=== PATIENT | male | born 1980 ===

== ENCOUNTER 2021-11-15 22:35 | Emergency (ER) | payer OTHER, SELFPAY ==
[2021-11-15] MEDS ORDERED: LIDOCAINE 1% MPF 5 ML VIAL ONE (22:52)
--- NOTE | 2021-11-15 23:24 | ER ---
Nurse's Notes [facility] Name: Neil Jeffery Age: 41 yrs Sex: Male : 1980 Arrival Date: 11/15/2021 Time: 22:39 Bed 20 Private MD: Diagnosis: Laceration without foreign body of other finger without damage to nail-right fifth and right fourth fingers;Hypertensive heart disease without heart failure Presentation: 11/15 22:43 Chief complaint: Patient states: laceration to the right hand the 4th and 5th digit. sf1 Coronavirus screen: Vaccine status: Patient reports receiving the 2nd dose of the covid vaccine. Client denies travel out of the [place] in the last 14 days. Ebola Screen: Patient negative for fever greater than or equal to 101.5 degrees Fahrenheit, and additional compatible Ebola Virus Disease symptoms Patient denies exposure to infectious person. Patient denies travel to an Ebola-affected area in the 21 days before illness onset. Initial Sepsis Screen: Does the patient meet any 2 criteria? No. Patient's initial sepsis screen is negative. Does the patient have a suspected source of infection? No. Patient's initial sepsis screen is negative. Risk Assessment: Do you want to hurt yourself or someone else? Patient reports no desire to harm self or others. Onset of symptoms was November 15, 2021. 22:43 Method Of Arrival: Ambulatory sf1 22:43 Acuity: LAILA 4 sf1 Triage Assessment: 22:45 General: Appears in no apparent distress. Behavior is calm, cooperative, appropriate sf1 for age. Pain: Complains of pain in dorsal aspect of proximal phalanx of right ring finger and dorsal aspect of proximal phalanx of right little finger. Historical: - Allergies: 22:45 No Known Allergies; sf1 - Home Meds: 22:45 lisinopril 20 mg Oral tab 1 tab once daily [Active]; gabapentin 300 mg oral cap sf1 [Active]; sertraline 100 mg oral tab 1 tab once daily [Active]; - PMHx: 22:45 Hypertensive disorder; ptsd; sf1 - Immunization history:: Adult Immunizations up to date, Client reports receiving the 2nd dose of the Covid vaccine, Last tetanus immunization: up to date Flu vaccine is not up to date. - Social history:: Smoking status: Patient reports the use of cigarette tobacco products, smokes one-half pack cigarettes per day, Patient uses alcohol, on a daily basis. Patient/guardian denies using street drugs. Screenin:38 Abuse screen: Denies threats or abuse. Nutritional screening: No deficits noted. sf1 Tuberculosis screening: No symptoms or risk factors identified. Fall Risk None identified. Vital Signs: 23:40 BP 182 / 90; Pulse 80; Resp 20; Pulse Ox 98% ; sf1 ED Course: 22:39 Patient arrived in ED. mw2 22:39 Real Mai PA is PHCP. cp 22:39 Randy Lopez MD is Attending Physician. cp 22:43 Rachel Waite RN is Primary Nurse. sf1 22:44 Triage completed. sf1 23:38 Assist provider with laceration repair Set up tray. Dressed with Adaptic, Kerlix. sf1 Patient did not have IV access during this emergency room visit. 23:39 Patient has correct armband on for positive identification. sf1 Administered Medications: 23:24 Drug: Lidocaine (1 %) 10 ml Volume: 20 ml; Route: Infiltration; sf1 Outcome: 23:23 Discharge ordered by MD. cp 23:39 Discharged to home ambulatory. sf1 23:39 Condition: stable 23:39 Discharge instructions given to patient, Instructed on discharge instructions, follow up and referral plans. Demonstrated understanding of instructions, follow-up care, medications, Prescriptions given X 1. 23:41 Patient left the ED. sf1 Signatures: Real Mai PA PA cp [place], MyKena mw2 Rachel Waite RN RN sf1
--- NOTE | 2021-11-15 23:24 | EDPHYS ---
Physician Documentation [facility] Name: Neil Jeffery Age: 41 yrs Sex: Male : 1980 Arrival Date: 11/15/2021 Time: 22:39 Bed 20 Private MD: ED Physician Randy Lopez HPI: 11/15 23:00 This 41 yrs old Male presents to ER via Ambulatory with complaints of laceration to cp right hand. 23:00 The patient or guardian reports a laceration. The complaints affect the right fourth cp and right fifth fingers. 23:00 Context: The problem was sustained at home, resulted from sharp edge of knife. cp 23:00 Onset: The symptoms/episode began/occurred just prior to arrival. Associated signs and cp symptoms: The patient has no apparent associated signs or symptoms. Historical: - Allergies: 22:45 No Known Allergies; sf1 - Home Meds: 22:45 lisinopril 20 mg Oral tab 1 tab once daily [Active]; gabapentin 300 mg oral cap sf1 [Active]; sertraline 100 mg oral tab 1 tab once daily [Active]; - PMHx: 22:45 Hypertensive disorder; ptsd; sf1 - Immunization history:: Adult Immunizations up to date, Client reports receiving the 2nd dose of the Covid vaccine, Last tetanus immunization: up to date Flu vaccine is not up to date. - Social history:: Smoking status: Patient reports the use of cigarette tobacco products, smokes one-half pack cigarettes per day, Patient uses alcohol, on a daily basis. Patient/guardian denies using street drugs. ROS: 23:05 Skin: Positive for laceration(s), of the right fourth and right fifth fingers. cp 23:05 Constitutional: Negative for chills, fever. cp 23:05 Neuro: Negative for numbness, weakness. 23:05 All other systems are negative. Exam: 23:10 Constitutional: The patient appears in no acute distress, alert, awake, well developed, cp well nourished. 23:10 Cardiovascular: Rate: normal. cp 23:10 Respiratory: the patient does not display signs of respiratory distress, Respirations: normal. 23:10 Musculoskeletal/extremity: ROM: full active range of motion, in the right hand, Perfusion: the extremity is normally perfused throughout, the right fourth and right fifth finger Sensation intact. Tendon exam: specific tendon testing normal through active and passive range of motion 23:10 Skin: injury, laceration(s), the wound is approximately 1.5 cm(s), of the radial side middle phalanx right fifth finger, the second wound is approximately 2 cm(s), of the radial side proximal phalanx right fourth finger, that can be described as clean, no foreign body, linear, with mild bleeding. Vital Signs: 23:40 BP 182 / 90; Pulse 80; Resp 20; Pulse Ox 98% ; sf1 Laceration: 23:25 Wound Repair of 1.5cm ( 0.6in ) subcutaneous laceration to radial side middle phalanx cp right fifth finger. Linear shaped.. Distal neuro/vascular/tendon intact. Wound prep: Moderate cleansing by nurse. Skin closed with 2 4-0 Prolene using simple sutures and sterile technique. Dressed with Bacitracin. Patient tolerated well. 23:25 Wound Repair of 2cm ( 0.8in ) subcutaneous laceration to proximal phalanx right fourth cp finger. Linear shaped.. Distal neuro/vascular/tendon intact. Wound prep: Moderate cleansing by nurse. Skin closed with 2 4-0 Prolene using simple sutures and sterile technique. Dressed with Bacitracin. Patient tolerated well. MDM: 22:46 Patient medically screened. cp 23:23 Data reviewed: vital signs, nurses notes, and as a result, I will discharge patient. cp 23:23 Counseling: I had a detailed discussion with the patient and/or guardian regarding: the cp historical points, exam findings, and any diagnostic results supporting the discharge/admit diagnosis, the need for outpatient follow up, a family practitioner, to return to the emergency department if symptoms worsen or persist or if there are any questions or concerns that arise at home. Response to treatment: the patient's symptoms have markedly improved after treatment, and as a result, I will discharge patient. 11/15 22:55 Order name: Wound Care; Complete Time: 22:59 cp 11/15 22:55 Order name: Dressing - Wound; Complete Time: 23:02 cp 11/15 22:55 Order name: Gloves, Sterile; Complete Time: 23:02 cp 11/15 22:55 Order name: Setup Suture Tray; Complete Time: 23:02 cp Administered Medications: 23:24 Drug: Lidocaine (1 %) 10 ml Volume: 20 ml; Route: Infiltration; sf1 Disposition: 23:30 Chart complete. cp Disposition Summary: 11/15/21 23:23 Discharge Ordered Location: Home cp Problem: new cp Symptoms: have improved cp Condition: Stable cp Diagnosis - Laceration without foreign body of other finger without damage to nail - right cp fifth and right fourth fingers - Hypertensive heart disease without heart failure cp Followup: cp - With: Private Physician - When: 7 - 10 days - Reason: Staple/Suture removal Discharge Instructions: - Discharge Summary Sheet cp - Hypertension, Adult cp - Laceration Care, Adult cp - How to Take Your Blood Pressure cp Forms: - Medication Reconciliation Form cp - Thank You Letter cp - Antibiotic Education cp - Prescription Opioid Use cp Prescriptions: - Cephalexin 500 mg Oral Capsule - take 1 capsule by ORAL route every 8 hours for 10 days; 30 capsule; Refills: 0, cp Product Selection Permitted Addendum: 11/17/2021 00:37 Co-signature as Attending Physician, Randy Lopez MD I agree with the assessment and r n plan of care. Attestation: The patient's history, exam findings, diagnostics, and a summary of any interventions or procedures was reviewed in detail with Real MOHAN. Signatures: Randy Lopez MD MD rn Page, Corey, PA PA cp Fillers, Samantha RN RN sf1
[2021-11-15 23:52] VITALS: BP 182/90; O2SAT 98
== END 2021-11-15 23:41 | disposition home or self-care (01) ==
LOC: ER 22:35
PROC: 0JQJ0ZZ Repair Right Hand Subcutaneous Tissue and Fascia, Open Approach (ICD-10-PCS; principal; 2021-11-15)
DX: S61.214A Laceration without foreign body of right ring finger without damage to nail, initial encounter (principal); S61.216A Laceration without foreign body of right little finger without damage to nail, initial encounter; I11.9 Hypertensive heart disease without heart failure; W26.0XXA Contact with knife, initial encounter; Y92.009 Unspecified place in unspecified non-institutional (private) residence as the place of occurrence of the external cause; F43.10 Post-traumatic stress disorder, unspecified; F17.210 Nicotine dependence, cigarettes, uncomplicated
CPT/HCPCS: 99283